=== PATIENT | male | born 1965 | race Caucasian/White ===

== ENCOUNTER 2017-01-02 21:41 | Emergency (ER) | payer MEDICAID ==
[2016-03-20 13:49] VITALS: BMI 45.1
[~2017-01-02 21:41] MED LIST: ALIGN4 MG PO; BAYER CHEWABLE81 MG PO; CIALIS5 MG PO; CYCLOBENZAPRINE10 MG PO; HYDROCODONE-APA1 TAB PO; LIPITOR40 MG PO; LOPRESSOR25 MG PO; NORCO 7.5/325 T1 TA1 PO; OMEPRAZOLE20 M1 PO; TYLENOL W/CODEI1 TAB PO; ZESTORETIC 20/21 TAB PO
== END 2017-01-02 23:48 | disposition home or self-care (01) ==
LOC: D.ER 21:41
DX: T16.2XXA Foreign body in left ear, initial encounter (principal); T16.1XXA Foreign body in right ear, initial encounter; X58.XXXA Exposure to other specified factors, initial encounter; Y93.89 Activity, other specified; Y92.89 Other specified places as the place of occurrence of the external cause; H69.93 Unspecified Eustachian tube disorder, bilateral; I10 Essential (primary) hypertension; E78.5 Hyperlipidemia, unspecified

== ENCOUNTER 2018-11-05 07:49 | Day surgery (SDC) | payer OTHER ==
[~2018-11-05] VITALS: Ht 172.7 cm; Wt 133.8 kg
[~2018-11-05 07:49] MED LIST changes: +CARDURA4 MG PO; +FLOMAX0.4 MG PO; +NORVASC10 MG PO
[2018-11-05 08:25] LABS: HEMATOCRIT 49.1 % (42.0-54.0); HEMOGLOBIN 16.1 g/dL (13.5-17.5); MCH 25.2 pg (26.0-34.0); MCHC 32.8 g/dL (31.0-37.0); MCV 76.7 fL (80.0-100.0); MEAN PLATELET VOLUME 9.1 fL (7.4-10.4); RBC 6.4 10x6/uL (4.20-6.10); RDW 18.2 % (11.5-14.5); WBC 8.4 10x3/uL (4.8-10.8)
[2018-11-05 08:37] LABS: ANION GAP 11.7 mmol/L (8-16); CALCIUM 8.4 mg/dL (8.5-10.1); CARBON DIOXIDE 26.9 mmol/L (21.0-32.0); CREATININE - SERUM 1.1 mg/dL (0.6-1.3); POTASSIUM - SERUM 3.6 mmol/L (3.5-5.1)
[2018-11-05] MEDS ORDERED: ADIPEX-P37.5 M1 PO (09:43)
[2018-11-05 09:53] VITALS: BP 130/81; Ht 172.7 cm; Wt 133.8 kg
--- NOTE | 2018-11-05 14:12 | NUR ---
1405 ASSISSTED UP TO BR, STATES NEEDS TO HAVE A BM. FL DIET ORDERED. WATER LEFT AT BEDSIDE.
--- NOTE | 2018-11-05 14:42 | OP ---
PATIENT NAME: BEREKET THORNE MEDICAL RECORD: [id number] :67 LOCATION:[facility] ADMISSION DATE: SURGEON: AMRITA SOLORIO MD DATE OF OPERATION: 11/05/2018 SURGEON: Amrita Solorio MD ANESTHESIA: TIVA by Roderick Pineda CRNA. DIAGNOSES: Obstructive BPH, failed Flomax treatment. PSA 0.88 in June 2018. JASKARAN has a 30-gram prostate. IPSS score is 20, quality of life score is 6. PROCEDURE: UroLift times 4 in the box configuration. FINDINGS: Nonobstructive lateral lobes. Primarily bladder neck and anterior prostatic urethral obstruction. Single ureteral orifices bilaterally with no bladder tumors. BLOOD LOSS: None. CLINICAL HISTORY: This is a 53-year-old male, who is taking testosterone injections for low serum testosterone levels. [facility] referred him for BPH evaluation. He has trouble voiding since 06/07/2017. He had issues with urinary frequency and urgency. Dr. Kilgore tried him on Flomax, but he did not have any good response to the Flomax. He still has ongoing nocturia greater than 4 with hesitancy, slow urinary flow, and a feeling of incomplete bladder emptying. He comes today to have the UroLift procedure done. He is not allergic to any medications. He was given Ancef employee relations assistant to the OR. DESCRIPTION OF PROCEDURE: The patient was given IV sedation. He was then placed into dorsal lithotomy position and prepped and draped. Lidocaine jelly was inserted into the urethra and held with a penile clamp for about 5 minutes. We then inserted the UroLift cystoscope. The prostatic lateral lobes are not quite obstructive. They do not meet in the midline. There is an overhang from the anterior portion of the prostatic lobe. The bladder neck is quite tight. Going into the bladder, no bladder tumors were seen. He has a moderately trabeculated bladder with single ureteral orifices bilaterally. It was decided to put the UroLift implant around the bladder neck in a box configuration to open up the bladder neck. At the anterior lateral prostatic urethra about 1.5 cm distal to the bladder neck at the 11 o'clock and 1 o'clock positions, one implant was placed on each side. Then, we placed 2 more implants at the 3 o'clock and 9 o'clock positions. This resulted in nice open bladder neck. The bladder was then partially emptied through the cystoscope sheath. I left some fluid in the bladder so that we can determine if the patient can void or not after anesthesia. I will see the patient in 1 month's time if he is able to void. TRANSINT:[id number] Voice Confirmation ID: [id number] DOCUMENT ID: [id number] OPERATIVE REPORT [id number] BEREKET THORNE, AMRITA Dang MD at 1442 CC: [id number] DICTATION DATE: 11/05/18 1357 OIL PIT ATTENDANT: 11/05/18 1421 [facility] [address] [place] [address]
== END 2018-11-05 16:20 | disposition home or self-care (01) ==
LOC: D.OPS 07:49 → D.PAN 10:45 → D.OPS 11:35 → D.PAN 12:00 → D.OPS 12:00
PROVIDERS: Anesthesiology; ATTEND Urology
DX: N40.1 Benign prostatic hyperplasia with lower urinary tract symptoms (principal); N13.8 Other obstructive and reflux uropathy; R35.0 Frequency of micturition; R39.11 Hesitancy of micturition; R39.14 Feeling of incomplete bladder emptying; R35.1 Nocturia; R39.15 Urgency of urination; N32.0 Bladder-neck obstruction; N36.8 Other specified disorders of urethra; Z01.812 Encounter for preprocedural laboratory examination

== ENCOUNTER 2020-04-09 05:35 | Day surgery (SDC) | payer OTHER ==
[2020-04-08 10:13] LABS: HEMATOCRIT 49.9 % (42.0-54.0); MCH 29.9 pg (26.0-34.0); MCHC 34.1 g/dL (31.0-37.0); MCV 87.7 fL (80.0-100.0); MEAN PLATELET VOLUME 9.1 fL (7.4-10.4); RBC 5.69 10x6/uL (4.20-6.10); RDW 13.3 % (11.5-14.5); WBC 8.5 10x3/uL (4.8-10.8)
[2020-04-08 10:15] LABS: ANION GAP 12.2 mmol/L (8-16); CALCIUM 9.2 mg/dL (8.5-10.1); CREATININE - SERUM 1.3 mg/dL (0.6-1.3); POTASSIUM - SERUM 4.2 mmol/L (3.5-5.1)
[~2020-04-09] VITALS: Ht 172.7 cm; Wt 124.7 kg
[~2020-04-09 05:35] MED LIST changes: +ADIPEX-P37.5 M1 PO; +FUROSEMIDE20 MG PO; +LISINOPRIL20 MG PO
[2020-04-09] MEDS ORDERED: CYCLOBENZAPRINE10 MG PO (06:14)
[2020-04-09 06:22] VITALS: BP 128/79; Ht 172.7 cm; Wt 124.7 kg
--- NOTE | 2020-04-09 11:13 | NUR ---
0945 REPORTS PAIN NOW 5/10 AND TOLERABLE. IV D/C'D WITH CANNULA INTACT, PRESSURE HELD AND DRSG PLACED. DISHCARGE INSTRUCTIONS GIVEN AND PT VERBALIzED AND UNDERSTANDING
--- NOTE | 2020-04-09 17:26 | OP ---
PATIENT NAME: BEREKET CAPUTO MEDICAL RECORD: [id number] :67 LOCATION:[facility] ADMISSION DATE: SURGEON: RODOLFO HOLMAN DO DATE OF OPERATION: 04/09/2020 PROCEDURE PERFORMED: Left knee arthroscopy with partial medial meniscectomy and partial synovectomy. 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 INDICATIONS: Mr. Caputo is a 54-year-old male who had left knee pain for some time. He had some joint space narrowing, but not severe, got an MRI. He had more meniscal symptoms of popping, catching, and locking. I told him that the MRI did show he had some chondromalacia, but he had quite a meniscal tear complex wound and I chewed it out and hopefully gave him some relief in the interim while he would be probably a candidate for a knee replacement in the future, this may get him some time. He was aware of all that and aware of the risks of infection, bleeding, damage to nerves or vessels, need for further surgery, continued pain, blood clots, and even and he signed the consent. SURGEON: Rodolfo Holman DO DESCRIPTION OF PROCEDURE: The patient was taken to the operative suite, laid in supine position, given general anesthetic and LMA was placed. He was given 2 grams of Ancef preoperatively. Left lower extremity was then prepped and draped in sterile fashion. Timeout was performed. Everyone was in agreeance with the correct side, site, patient and procedure. I then began by making the lateral incision over the knee and entering the trocar into the knee. I then inspected the suprapatellar pouch. No loose body seen there, but there was quite inflamed synovium noted, the grade III chondromalacia of the patella was noted as well. Lateral and medial gutters were good. No loose bodies and then I flexed the knee down. I made a medial portal with an 18-gauge spinal needle and 11-blade scalpel, trocar then entered the joint. I then exposed the meniscal tear from the middle portion to the posterior horn all throughout. I then brought biter and shaver and shaved that back. I noted the grade III chondromalacia on the medial femoral condyle. ACL was in good shape. I then [id number]'ed the knee on the lateral compartment. There were no tears seen in the lateral meniscus, but there was some grade III chondromalacia on the medial femoral condyle. Then, I inspected the patellofemoral joint and saw the grade III chondromalacia of the trochlea and then he had quite inflamed synovium there and I chewed that out. The tourniquet was inflated for 7 minutes during the procedure to 350 mmHg was let down and then the water was turned off. Suction was turned on. Excess fluid removed from the knee. Gio Garcia, board certified family physician then closed the portal sites with 4-0 Monocryl in inverted interrupted fashion. He was then dressed with Steri-Strips, Adaptic, 4 x 4's, ABD, Webril, Vitor wrap and NERY hose stocking was placed up to the knee. He was awakened and taken to recovery in stable condition. BLOOD LOSS: Minimal. OPERATIVE REPORT [id number] BEREKET CAPUTO COMPLICATIONS: None. TRANSINT:[id number] Voice Confirmation ID: [id number] DOCUMENT ID: [id number] RODOLFO HOLMAN DO at 1726 CC: [id number] DICTATION DATE: 04/09/20932 LABOR STANDARDS DIRECTOR: 04/09/20 1607 [facility] 04/09/20 [id number] [place] [address]
== END 2020-04-09 10:05 | disposition home or self-care (01) ==
LOC: D.OPS 05:35 → D.PAN 15:50 → D.OPS 15:50
PROVIDERS: Anesthesiology; ATTEND Orthopaedic Surgery
DX: S83.242A Other tear of medial meniscus, current injury, left knee, initial encounter (principal); X58.XXXA Exposure to other specified factors, initial encounter; M65.9 Synovitis and tenosynovitis, unspecified; M22.42 Chondromalacia patellae, left knee; M25.562 Pain in left knee; I10 Essential (primary) hypertension; E78.00 Pure hypercholesterolemia, unspecified; M17.11 Unilateral primary osteoarthritis, right knee